=== PATIENT | male | born 1970 | race Caucasian/White ===

== ENCOUNTER 2019-02-11 10:59 | Emergency (ER) | payer MEDICAID ==
--- NOTE | 2019-02-11 11:48 | CT ---
CT Brain WO Con HISTORY: Fall with head laceration. COMPARISON: None. FINDINGS: The ventricular and cisternal system is within normal limits. There is a cava septum pelluc idum present. There are no signs of intracerebral hemorrhage or extra-axial fluid collections. The mastoid air cells and visualized sinuses are clear. IMPRESSION: No acute intracranial abnormalities.
== END 2019-02-11 12:17 | disposition home or self-care (01) ==
LOC: ERS 10:59
DX: S01.81XA Laceration without foreign body of other part of head, initial encounter (principal); W05.0XXA Fall from non-moving wheelchair, initial encounter
CPT/HCPCS: 12011; 70450